=== PATIENT | female | born 1980 | race Caucasian/White ===

== ENCOUNTER 2019-06-09 16:43 | Observation (INO) | payer MEDICAID ==
[~2019-06-09] VITALS: Ht 152.4 cm; Wt 79.8 kg
[2019-06-09 18:08] LABS: CLARITY URINE CLEAR (CLEAR); COLOR URINE YELLOW (YELLOW); KETONES URINE TRACE (NEGATIVE); LEUKOCYTE ESTERASE URINE 1+ (NEGATIVE); NITRITE URINE NEGATIVE (NEGATIVE); OCCULT BLOOD URINE NEGATIVE (NEGATIVE); PH URINE 6.5 (4.5-8.0); PROTEIN URINE TRACE (NEGATIVE); SPECIFIC GRAVITY URINE 1.025 (1.005-1.030)
[2019-06-09] MEDS ORDERED: ASPI-1393 PO (19:20)
[2019-06-09] MEDS ORDERED: PNV1TABL50 PO (19:20)
[2019-06-09] MEDS ORDERED: FERROUS SULFATE (19:20)
[2019-06-09] MEDS ORDERED: CALICUM (19:20)
== END 2019-06-09 20:00 | disposition home or self-care (01) ==
LOC: 8 EST LDRP 16:43
PROVIDERS: ADMIT Obstetrics & Gynecology; ATTEND Obstetrics & Gynecology
DX: O26.893 Other specified pregnancy related conditions, third trimester (principal); R10.9 Unspecified abdominal pain; Z3A.31 31 weeks gestation of pregnancy
CPT/HCPCS: 81003; 82731; 99281; G0378

== ENCOUNTER 2019-06-19 14:14 | Observation (INO) | payer MEDICAID ==
[~2019-06-19 14:14] MED LIST: ASPI-1393 PO; CALICUM; FERROUS SULFATE; PNV1TABL50 PO
== END 2019-06-19 16:25 | disposition home or self-care (01) ==
LOC: 8 EST LDRP 14:14
PROVIDERS: ADMIT Obstetrics & Gynecology; ATTEND Obstetrics & Gynecology
DX: O36.8130 Decreased fetal movements, third trimester, not applicable or unspecified (principal); Z3A.32 32 weeks gestation of pregnancy
CPT/HCPCS: 76815; 76818; 99281; G0378

== ENCOUNTER 2019-07-08 12:02 | Inpatient (IN) | payer MEDICAID ==
[~2019-07-08] VITALS: Ht 157.5 cm; Wt 81.6 kg
[2019-07-08] MEDS ORDERED: METHYLERGONOVINE MALEATE 0.2 MG/ML IM PRN (13:00)
[2019-07-08] MEDS ORDERED: CITRIC ACID/SODIUM CITRATE SOLN 30ML UDC PO NR (13:00)
[2019-07-08] MEDS ORDERED: CARBOPROST TROMETHAMINE 250 MCG/ML AMPUL IM PRN (13:00)
[2019-07-08 13:24] LABS: CLARITY URINE CLOUDY (CLEAR); COLOR URINE YELLOW (YELLOW); KETONES URINE NEGATIVE (NEGATIVE); LEUKOCYTE ESTERASE URINE 3+ (NEGATIVE); NITRITE URINE NEGATIVE (NEGATIVE); OCCULT BLOOD URINE NEGATIVE (NEGATIVE); PH URINE 6.5 (4.5-8.0); PROTEIN URINE NEGATIVE (NEGATIVE); SPECIFIC GRAVITY URINE 1.009 (1.005-1.030)
[2019-07-08 13:26] LABS: BASOPHILS % 0.5 % (0.0-2.0); EOSINOPHILS % 1.3 % (0.0-5.0); HEMATOCRIT. 32.4 % (36.0-48.0); HEMOGLOBIN. 10.9 g/dL (12.0-16.0); MEAN CORPUSCULAR HEMOGLOBIN 29.9 pg (28.0-32.0); MEAN CORPUSCULAR VOLUME 88.6 fL (81.0-99.0); MEAN PLATELET VOLUME 9.4 fl (7.4-10.4); MONOCYTES % 10.5 % (2.0-8.0); NEUTROPHILS % 59.7 % (40.0-76.0); PLATELET 224 x1000/uL (130-400); RED BLOOD CELL COUNT 3.65 mill/uL (4.2-5.4)
[2019-07-08 13:40] LABS: *COCAINE SCREEN URINE NEGATIVE (NEGATIVE)
[2019-07-08 13:41] LABS: *AMPHETAMINES SCREEN URINE NEGATIVE (NEGATIVE); CANNABINOID URINE SCREEN NEGATIVE (NEGATIVE); METHADONE URINE SCREEN NEGATIVE (NEGATIVE); OPIATES URINE SCREEN NEGATIVE (NEGATIVE); PHENCYCLIDINE URINE SCREEN NEGATIVE (NEGATIVE)
[2019-07-08 13:42] LABS: *BARBITURATES SCREEN URINE NEGATIVE (NEGATIVE); *BENZODIAZEPINES SCREEN URINE NEGATIVE (NEGATIVE)
[2019-07-08] MEDS ORDERED: INFLUENZA VIRUS VACCINE(AFLURIA) 0.5ML SYR IM ONE (13:45)
[2019-07-08 14:09] LABS: HEPATITIS B SURFACE ANTIGEN NEGATIVE
[2019-07-08 14:24] LABS: INR 0.9; PARTIAL THROMBOPLASTIN TIME 26.3 sec (23.4-31.0); PROTHROMBIN TIME 9.1 sec (9.6-11.0)
[2019-07-08] MEDS ORDERED: URSO300C4 PO (14:59)
[2019-07-08] MEDS ORDERED: METF-414 PO (14:59)
[2019-07-08] MEDS ORDERED: CEFAZOLIN SODIUM 1000MG/VIAL ONE (15:16)
[2019-07-08] MEDS ORDERED: MORPHINE SULFATE/PF 1MG/ML 10ML AMP ONE (15:16)
[2019-07-08] MEDS ORDERED: FENTANYL CITRATE/PF 50MCG/ML 2ML VIAL ONE (15:16)
[2019-07-08] MEDS ORDERED: GLYCOPYRROLATE 0.2 MG/ML 2ML VIAL ONE (15:16)
[2019-07-08] MEDS ORDERED: OXYTOCIN 10 UNITS/ML 1ML ONE ×2 (15:16→18:04)
[2019-07-08] MEDS ORDERED: EPHEDRINE SULFATE 50MG/ML VIAL ONE (15:16)
[2019-07-08] MEDS ORDERED: ONDANSETRON HCL 4MG/2ML INJ ONE (15:18)
[2019-07-08] MEDS ORDERED: SODIUM CHLORIDE 0.9% 10ML VIAL ONE (15:21)
[2019-07-08] MEDS ORDERED: METHYLERGONOVINE MALEATE 0.2 MG/ML ONE (16:00)
[2019-07-08] MEDS: LACTATED RINGERS 1,000 ML IV SCH (17:29)
[2019-07-08] MEDS ORDERED: METOCLOPRAMIDE HCL 10MG/2ML VIAL ONE (17:31)
[2019-07-08] MEDS ORDERED: KETOROLAC 60MG/2ML VIAL IM ONE (18:10)
[2019-07-08] MEDS ORDERED: DIPHENHYDRAMINE 50MG/ML VIAL ONE (18:10)
[2019-07-08] MEDS ORDERED: RHO(D) IMMUNE GLOBULIN 300 MCG/SYR IM PRN (18:30)
[2019-07-08] MEDS ORDERED: IBUPROFEN 400MG TABLET PO PRN (18:30)
[2019-07-08] MEDS ORDERED: HEMORRHOIDAL SUPP PR PRN (18:30)
[2019-07-08] MEDS ORDERED: ONDANSETRON HCL 4MG/2ML INJ IV PRN (18:30)
[2019-07-08] MEDS ORDERED: BISACODYL 10MG SUPP PR PRN (18:30)
[2019-07-08] MEDS ORDERED: HYDROCODONE/ACETAMINOPHEN 5/325MG TABLET PO PRN (18:30)
[2019-07-08] MEDS ORDERED: LANOLIN OINT 7GM TUBE TOP PRN (18:30)
[2019-07-08] MEDS ORDERED: BUTORPHANOL TARTRATE 2 MG/ML VIAL IV PRN (18:45)
[2019-07-08] MEDS ORDERED: DIPHENHYDRAMINE 50MG/ML VIAL IV PRN (18:45)
[2019-07-08] MEDS ORDERED: MEPERIDINE HCL/PF 25MG/ML CPJ IV PRN (18:45)
[2019-07-08] MEDS ORDERED: NALOXONE HCL 0.4 MG/ML 1ML VIAL IV PRN (18:45)
[2019-07-08] MEDS: DEXT 5%/LR + PITOCIN 20UNITS/L 1,000 ML IV SCH (19:53)
[2019-07-08] MEDS: DOCUSATE SODIUM 100MG CAPSULE PO SCH (21:00)
[2019-07-08] MEDS ORDERED: LABETALOL HCL 200MG TABLET PO SCH (21:00)
[2019-07-08] MEDS: SIMETHICONE 80MG TABLET CHEW PO SCH (21:00)
[2019-07-08 21:30] VITALS: BP 116/64
[2019-07-08 22:00] VITALS: BP 117/58
[2019-07-08 22:01] VITALS: BP 117/60
[2019-07-08 22:30] VITALS: BP 112/68
[2019-07-09] VITALS: BP 107/58
[2019-07-09] MEDS: KETOROLAC 30MG/ML VIAL IV SCH ×2 (03:04→09:09)
[2019-07-09] MEDS: DEXT 5%/LR + PITOCIN 20UNITS/L 1,000 ML IV SCH (03:10)
[2019-07-09 04:00] VITALS: BP 99/56
[2019-07-09 07:15] VITALS: BP 96/46
[2019-07-09] MEDS: FERROUS SULFATE 325MG TABLET PO SCH ×3 (07:30→18:08)
[2019-07-09] MEDS: SIMETHICONE 80MG TABLET CHEW PO SCH ×4 (08:00→21:33)
[2019-07-09] MEDS: PRENATAL VIT/FE FUMARATE/FA TABLET PO SCH (09:03)
[2019-07-09] MEDS ORDERED: TETANUS, DIPHTHERIA, PERTUSSIS VAC/PF 0.5ML (>7YR OLD) IM ONE (11:30)
[2019-07-09 14:00] LABS: BASOPHILS % 0.1 % (0.0-2.0); HEMATOCRIT. 25.6 % (36.0-48.0); HEMOGLOBIN. 8.9 g/dL (12.0-16.0); LYMPHOCYTES % 12.7 % (20.0-50.0); MEAN CORPUSCULAR VOLUME 88.7 fL (81.0-99.0); MEAN PLATELET VOLUME 8.8 fl (7.4-10.4); NEUTROPHILS % 80.2 % (40.0-76.0); PLATELET 187 x1000/uL (130-400); RED BLOOD CELL COUNT 2.88 mill/uL (4.2-5.4); RED CELL DISTRIBUTION WIDTH 14.2 % (11.6-14.6)
[2019-07-09 15:15] VITALS: BP 114/61
[2019-07-09] MEDS ORDERED: KETOROLAC 30MG/ML VIAL IV SCH (16:00)
[2019-07-09 19:30] VITALS: BP 115/68
[2019-07-09] MEDS: DOCUSATE SODIUM 100MG CAPSULE PO SCH (21:32)
[2019-07-10] MEDS: ACETAMINOPHEN WITH CODEINE 300/30MG TABLET PO PRN ×2 (00:45→18:52)
[2019-07-10 04:00] VITALS: BP 112/53
[2019-07-10 07:15] VITALS: BP 113/60
[2019-07-10] MEDS: FERROUS SULFATE 325MG TABLET PO SCH ×3 (08:54→18:14)
[2019-07-10] MEDS: PRENATAL VIT/FE FUMARATE/FA TABLET PO SCH (08:54)
[2019-07-10] MEDS: SIMETHICONE 80MG TABLET CHEW PO SCH ×3 (13:39→21:08)
[2019-07-10 16:15] VITALS: BP 144/86
[2019-07-10 20:02] VITALS: BP 134/78
[2019-07-10] MEDS: DOCUSATE SODIUM 100MG CAPSULE PO SCH (21:06)
[2019-07-11 04:00] VITALS: BP 119/66
[2019-07-11 08:00] VITALS: BP 121/74
[2019-07-11] MEDS ORDERED: IBUP-2030 MT (08:45)
== END 2019-07-11 11:41 | disposition home or self-care (01) | DRG 540 ==
LOC: OBSVTOIN 12:02 → 8 EST LDRP 12:02 → 8EST 21:30
PROVIDERS: ADMIT Obstetrics & Gynecology; ATTEND Obstetrics & Gynecology
PROC: 10D00Z1 Extraction of Products of Conception, Low, Open Approach (ICD-10-PCS; principal; 2019-07-08)
PROC: 0UB70ZZ Excision of Bilateral Fallopian Tubes, Open Approach (ICD-10-PCS; 2019-07-08)
DX: O34.219 Maternal care for unspecified type scar from previous cesarean delivery (principal); K83.1 Obstruction of bile duct; O60.14X2 Preterm labor third trimester with preterm delivery third trimester, fetus 2; Z37.2 Twins, both liveborn; O26.62 Liver and biliary tract disorders in childbirth; O24.429 Gestational diabetes mellitus in childbirth, unspecified control; D62 Acute posthemorrhagic anemia; O30.003 Twin pregnancy, unspecified number of placenta and unspecified number of amniotic sacs, third trimester; O32.2XX0 Maternal care for transverse and oblique lie, not applicable or unspecified; Z3A.35 35 weeks gestation of pregnancy; Z30.2 Encounter for sterilization; O90.81 Anemia of the puerperium
CPT/HCPCS: 36415; 80305; 81003; 86592; 86703; 86762; 86850; 86900; 86920; 87340; 88302; 88307; 90686; 90715; J0690; J1200; J1885; J2175; J2210; J2274; J2405; J2590; J2765; J3010; J3490; A4315

== ENCOUNTER 2023-01-22 23:09 | Emergency (ER) | payer MEDICAID, OTHER ==
[~2023-01-22] VITALS: Ht 152.4 cm; Wt 80.1 kg
[~2023-01-22 23:09] MED LIST changes: -ASPI-1393 PO; -CALICUM; -FERROUS SULFATE; +IBUP-2030 MT; +METF-414 PO
[2023-01-22 23:43] VITALS: BP 131/80
[2023-01-22 23:48] LABS: BASOPHILS % 0.2 % (0.0-2.0); HEMATOCRIT. 36.5 % (36.0-48.0); HEMOGLOBIN. 12.2 g/dL (12.0-16.0); LYMPHOCYTES % 35.6 % (20.0-50.0); MEAN CORPUSCULAR HEMOGLOBIN 28.6 pg (28.0-32.0); MEAN CORPUSCULAR VOLUME 85.4 fL (81.0-99.0); MONOCYTES % 8.7 % (2.0-8.0); NEUTROPHILS % 51.5 % (40.0-76.0); PLATELET 386 x1000/uL (130-400); RED BLOOD CELL COUNT 4.28 mill/uL (4.2-5.4); RED CELL DISTRIBUTION WIDTH 14.5 % (11.6-14.6)
[2023-01-22 23:57] LABS: CHLORIDE 107 mEq/L (98-107)
[2023-01-23] MEDS ORDERED: ACETAMINOPHEN 325MG TABLET PO ONE (05:30)
[2023-01-23] MEDS ORDERED: LIDO1ADH62 TP (05:33)
[2023-01-23] MEDS ORDERED: TOPUD PO (05:33)
== END 2023-01-23 06:01 | disposition home or self-care (01) ==
LOC: ER 23:09
DX: M25.511 Pain in right shoulder (principal); R07.89 Other chest pain; Z98.890 Other specified postprocedural states
CPT/HCPCS: 36415; 71045; 80053; 84484; 85025; 93005; 99285